=== PATIENT | male | born 2005 | race African-American/Black ===

== ENCOUNTER 2025-05-09 18:04 | Emergency (ER) | payer MEDICAID, SELFPAY ==
[2025-05-09 18:05] VITALS: BP 115/78
[2025-05-09 18:07] VITALS: BP 115/78
[2025-05-09 18:10] VITALS: BMI 30.2
[2025-05-09 18:45] VITALS: BP 133/62
[2025-05-09 19:00] VITALS: BP 116/63
--- NOTE | 2025-05-09 19:19 | ED.GENMED ---
History of Present Illness
General
Chief Complaint: Allergic Reaction
Source: patient
Time Seen by Provider: 05/09/25 19:08
History of Present Illness
History of Present Illness:
20-year-old male brought to the [facility] by ambulance after an allergic reaction. Patient states he accidentally consumed a piece of shrimp to which she is allergic. Nonnormal was called. He felt like his throat was tightening. He was given
Decadron IV by medics. Patient states he did not take anything on his own. The EMS record does not reflect any other medications such as Benadryl or epi. Patient is feeling a bit better now but still has some tingling. No rash. He does not have
any itching
Phy Exam
Physical Exam
Physical Exam:
General: Awake, Alert, Oriented X3. No acute distress.
Vitals: unremarkable
Head: Atraumatic
Eyes: Pupils equal, EOMI
Throat: Airway intact, no exudates, no angioedema
Neck: Trachea midline
Lungs: Clear and equal b/l
Heart: Regular rate, no murmurs
Abd: Soft, Nontender, No pulsatile mass
Neuro: Nonfocal
Skin: Warm, dry, no rash
Extremities: pulses equal b/l, no edema
Course
Orders/Labs/Results
Orders:
Orders
05/09/25 19:18
Diphenhydramine [Benadryl] 25 mg IV NOW STA
Famotidine [Pepcid] 20 mg IV NOW STA
Vital Signs
Initial and Last Documented VS:
Initial Vital Signs
BP
115/78
05/09/25 18:05
Last Documented Vital Signs
Temp Pulse Resp BP Pulse Ox
97.4 F 72 14 116/63 98
05/09/25 18:07 05/09/25 19:42 05/09/25 19:42 05/09/25 19:00 05/09/25 19:42
MDM/Problems Addressed
Differential Diagnosis Includes:
Anaphylaxis allergic reaction, anxiety attack,
MDM/Problems Addressed:
Patient presents with sensation of throat itching and discomfort after consuming shrimp inadvertently. Better after treatment provided by paramedics which appears to be dexamethasone. Patient further treated with Benadryl, Pepcid here in the
emergency room. He feels 'peachy'. Stable for discharge home
*Pulse Oximetry
SaO2: 99
Oxygen Mode of Delivery: Room air
Patient hypoxic: no
*Critical Care Note
Total Time (30-74mins, 75-104mins- exclusive of procedures): Not Applicable
ED Attending Note
-
Portions of this chart may have been created with voice recognition software.� Occasional wrong word or��sound alike� substitutions may have occurred due to the inherent limitations of voice recognition software.
Discharge Plan
Departure
Patient Disposition: Home (Routine Discharge)
Date of Disposition: 05/09/25
Time of Disposition: 20:14
Patient with high blood pressure during this ER visit?: No
Condition: Good
Discharge Problem:
Allergic reaction
Instructions: Allergic reaction - ED (DC)
Prescriptions:
New
epinephrine [EpiPen 2-Cooper] 0.3 mg/0.3 mL auto-injector
0.3 mg IM ONCE Qty: 2 0RF
Referrals:
NONE,* [Family Provider, Internal Medicine]
Activity Restrictions/Additional Instructions:
Take Benadryl every 6 hours if you have any hives or return of throat symptoms. Return to the ER for any trouble breathing.
Interventions
Interventions:
*Risk Screen - Suicide Last Done: 05/09/25 18:11
*General Assessment Last Done: 05/09/25 18:11
*Neglect/Abuse Screening Last Done: 05/09/25 18:11
*ED- Fall Risk Assessment Last Done: 05/09/25 18:07
*ED COVID-19 Vaccine History Last Done: 05/09/25 18:07
*ED Influenza Vaccine History Last Done: 05/09/25 18:07
ED- Cardiac Assessment Last Done: 05/09/25 18:12
ED- Pulmonary Assessment Last Done: 05/09/25 18:12
ED-Skin Assessment Last Done: 05/09/25 18:12
Discharge Date and Time
Print Language: AUSTRALIAN
[2025-05-09] MEDS: BENADRYL 25 MG IV (19:31)
[2025-05-09] MEDS: PEPCID 20 MG IV (19:32)
== END 2025-05-09 20:24 | disposition home or self-care (01) ==
LOC: EMR 18:04
PROVIDERS: EMERGENCY PHYSICIAN Emergency Medicine
DX: T78.40XA Allergy, unspecified, initial encounter (principal); R09.89 Other specified symptoms and signs involving the circulatory and respiratory systems; R20.2 Paresthesia of skin; X58.XXXA Exposure to other specified factors, initial encounter; Z91.013 Allergy to seafood
CPT/HCPCS: 96374; 96375; 99284